=== PATIENT | male | born 1980 | race Asian ===

== ENCOUNTER 2019-12-15 01:45 | Emergency (ER) | payer OTHER ==
--- NOTE | 2019-12-15 01:52 | PDOC ---
History of Present Illness - General Chief Complaint: Urinary Problem Stated Complaint: FEVER X 3 WEEKS/URINARY INFECTION Time Seen by Provider: 12/15/19 01:47 History Source: Patient Exam Limitations: No Limitations - History of Present Illness Initial Comments: 12/15/19 01:48 This is a 39-year-old male comes in complaining of fever x3 weeks. Patient said he was diagnosed with a urinary tract infection approximately 2 weeks ago and took antibiotics however his symptoms improved but then came back. Patient tried to follow-up with his doctor but his doctor was medication. Patient complaining of shaking chills took 2 Motrin and 2 Tylenol prior to coming in here his temperature was 99 in the ED. Patient is also complaining of some dysuria. Patient denies any cough, congestion, nausea, vomiting, diarrhea. Patient denies any back pain, flank pain or abdominal pain. Allergies: as per nursing notes Past Medical History: none Social history: Lives with family. No smoking. No alcohol. No illicit drugs. Surgical history: None General: + fevers + chills, no weakness, no weight loss HEENT: No change in vision. No sore throat,. No ear pain CardioVascular: no chest discomfort. No shortness of breath Respiratory:No cough, or wheezing. Gastrointestinal: no nausea, vomiting, diarrhea or constipation, No rectal bleeding Genitourinary: No dysuria, hematuria, or frequency Musculoskeletal: No joint or muscle pain or swelling Neurologic: No headache, vertigo, dizziness or loss of consciousness Psychiatric: nor depression Skin: No rashes or easy bruising Endocrine: no increased thirst or abnormal weight change Allergic: no skin or latex allergy All other systems reviewed and normal Exam: General: Well-nourished well-developed individual, no acute distress HEENT: Throat: Normal, tonsils normal, no erythema or exudate Neck: Supple, no meningeal signs, no lymphadenopathy Eyes::Pupils equal reactive and round, extraocular motion intact Chest: Nontender to palpation Cardiac: S1-S2 normal, regular rate and rhythm, no murmurs rubs or gallops Respiratory: Lungs clear to auscultation bilateral Abdomen: Soft, nondistended, normal bowel sounds, there is no tenderness on palpation diffusely Extremities: Warm, dry, no cyanosis, clubbing, or edema Skin: No rashes Neuro: Alert and oriented x3, CN II - XII intact, nonfocal exam with normal strength, normal sensation, normal reflexes, normal gait, Psych: Normal mood and affect 12/15/19 05:54 Assessment and plan: This is a 39-year-old male who comes in complaining of fever x3 weeks with dysuria. Patient Past History - Past Medical History Allergies/Adverse Reactions: Allergies Allergy/AdvReac Type Severity Reaction Status Date / Time No Known Allergies Allergy Verified 12/15/19 04:44 Home Medications: Ambulatory Orders Ciprofloxacin [Cipro -] 500 mg PO Q12H #20 tablet 12/15/19 Famotidine [Pepcid] 40 mg PO DAILY 12/15/19 ED Treatment Course - LABORATORY CBC & Chemistry Diagram: 12/15/19 01:55 12/15/19 01:55 Discharge - Discharge Information Problems reviewed: Yes Clinical Impression/Diagnosis: Acute cystitis Qualifiers: Hematuria presence: without hematuria Qualified Code(s): N30.00 - Acute cystitis without hematuria Condition: Stable Disposition: HOME - Admission No - Additional Discharge Information Prescriptions: Ciprofloxacin [Cipro -] 500 mg PO Q12H #20 tablet - Follow up/Referral - Patient Discharge Instructions Additional Instructions: Take Cipro 1 tablet twice a day for 10 days for the infection. Follow-up with your doctor this week if you still have fevers in 24 to 48 hours. Return to the emergency department immediately with ANY new, persistent or worsening symptoms. Continue any medications as previously prescribed by your physician. You should follow up with your primary doctor as soon as possible regarding today's emergency department visit. . Please make sure your doctor reviews the results of your emergency evaluation. Thank you for coming to the Emergency Department today for your care. It was a pleasure to see you today. Please note that your evaluation is INCOMPLETE until you follow-up with your doctor. - Post Discharge Activity
[2019-12-15 02:04] VITALS: BMI 29.0
[2019-12-15 02:38] LABS: BASO % 0.1 % (0-2.0); EOS % 0.7 % (0-4.5); HEMATOCRIT 42.7 % (35.4-49); HEMOGLOBIN 14.1 GM/dL (11.7-16.9); LYMPH % 16.3 % (8-40); MCH 28.7 pg (25.7-33.7); MONO % 6.7 % (3.8-10.2); NEUT % 76.2 % (42.8-82.8); PLATELET COUNT 344 K/MM3 (134-434); RDW 12.7 % (11.9-15.9); WHITE BLOOD COUNT 17.2 K/mm3 (4.0-10.0)
[2019-12-15 02:50] LABS: EPI CELLS 2.5 /HPF (0-5/HPF); HYALINE CASTS 2 /lpf (0-8); PH,URINE 5.5 (5.0-8.0); URINE APPEARANCE CLEAR; URINE BACTERIA 2.4 /hpf (NEGATIVE); URINE BILIRUBIN NEGATIVE (NEGATIVE); URINE COLOR YELLOW; URINE GLUCOSE (UA) NEGATIVE (NEGATIVE); URINE KETONE NEGATIVE (NEGATIVE); URINE LEUK ESTERASE 1+ (NEGATIVE); URINE NITRITE NEGATIVE (NEGATIVE); URINE PROTEIN NEGATIVE (NEGATIVE); URINE RBC 3 /hpf (0-4); URINE UROBILINOGEN 0.2 mg/dL (0.2-1.0); URINE WBC 28 /hpf (0-5)
[2019-12-15 03:05] LABS: ALBUMIN 4.2 g/dl (3.4-5.0); BILIRUBIN,TOTAL 0.8 mg/dL (0.2-1); BLOOD UREA NITROGEN 13.4 mg/dL (7-18); CALCIUM 9.3 mg/dL (8.5-10.1); CREATININE 0.9 mg/dL (0.55-1.3); POTASSIUM 3.6 mmol/L (3.5-5.1)
[2019-12-15 05:11] VITALS: BP 132/93; PULSE 83; TEMP 98.6
[2019-12-15] MEDS ORDERED: cefTRIAXone SODIUM 1 GM VIAL ONE (05:33)
== END 2019-12-15 06:16 | disposition home or self-care (01) ==
LOC: FER 01:45
DX: N30.00 Acute cystitis without hematuria (principal)
CPT/HCPCS: 36415; 74177-TC; 80053; 81003; 85025; 87040; 87086; 96374; 99282-25; Q9967